=== PATIENT | female | born 1975 | race Caucasian/White ===

== ENCOUNTER → 2021-09-17 09:57 | Outpatient (CLI) | payer OTHER, SELFPAY ==
[2021-09-17 18:37] LABS: Hematocrit 38.2 % (36-46); Hemoglobin 12.8 g/dL (12.0-16.0); Mean Corpuscular HGB Conc 33.4 % (30-36); Mean Corpuscular Hemoglobin 28.9 PG (26-34); Mean Corpuscular Volume 86.3 fL (80-100); Platelet Count 222 X10^3/uL (150-400); Red Blood Cell Count 4.42 X10^6/uL (4.0-5.2); Red Cell Distribution Width 13.4 % (11.6-14.8); White Blood Cell Count 4.4 X10^3/uL (4.5-11.0)
[2021-09-17 18:49] LABS: Alanine Aminotransferase 22 IU/L (<35); Albumin 4.4 g/dL (3.5-5.0); Albumin Globulin Ratio 1.4 (1.0-2.8); Alkaline Phosphatase 65 U/L (38-126); Aspartate Aminotransferase 30 IU/L (14-36); Bilirubin Total 0.7 mg/dL (0.2-1.3); Blood Urea Nitrogen 13 mg/dL (7-17); Calcium 9.6 mg/dL (8.4-10.2); Carbon Dioxide 28 mmol/L (22-32); Chloride 104 mmol/L (98-107); Estimated Glomerular Filt Rate > 60.0 mL/min (>60); Globulin 3.1 g/dL (1.7-4.1); Glucose 99 mg/dL (70-100); HEMOLYSIS < 15 (0-50); Potassium 4.2 mmol/L (3.4-5.1); Sodium 139 mmol/L (137-145); Total Protein 7.5 g/dL (6.3-8.2)
[2021-09-17 18:55] LABS: High Sensitivity CRP - Cardiac 6.2 mg/L (1.0-3.0)
[2021-09-17 19:18] LABS: Thyroid Stimulating Hormone 0.603 uIU/mL (0.47-4.68)
[2021-09-19 08:08] LABS: Cholesterol HDL Ratio 3.7 ratio (0.0-4.4); Cholesterol,Total 268 mg/dL (100-199); HDL Cholesterol 72 mg/dL (>39); LDL Cholesterol Cal 178 mg/dL (0-99); Triglycerides 103 mg/dL (0-149); VLDL Cholesterol Cal 18 mg/dL (5-40)
== END ==
PROVIDERS: PCP Family Medicine; Visit Provider Nurse Practitioner Obstetrics & Gynecology
DX: E78.5 Hyperlipidemia, unspecified (principal)
CPT/HCPCS: 80053; 80061; 84443; 85027; 86140

== ENCOUNTER → 2023-01-25 10:15 | Outpatient (CLI) | payer OTHER, SELFPAY ==
[2023-01-25 19:39] LABS: Add Manual Diff / Slide Review NO; Basophils Absolute Auto 100 /uL (0-100); Basophils Percent Auto 1.3 % (0-2); Eosinophils Absolute Auto 100 /uL (0-450); Eosinophils Percent Auto 1.8 % (2-4); Hematocrit 37.1 % (36-46); Hemoglobin 12.3 g/dL (12.0-16.0); Lymphocytes Absolute Auto 1800 /uL (1100-4500); Lymphocytes Percent Auto 34.4 % (25-40); Mean Corpuscular HGB Conc 33.3 % (30-36); Mean Corpuscular Volume 84.1 fL (80-100); Monocytes Absolute Auto 300 /uL (0-900); Monocytes Percent Auto 6.1 % (3-14); Neutrophils Absolute Auto 3000 /uL (1500-7000); Neutrophils Percent Auto 56.4 % (50-75); Platelet Count 248 X10^3/uL (150-400); Red Blood Cell Count 4.41 X10^6/uL (4.0-5.2); Red Cell Distribution Width 14.6 % (11.6-14.8); White Blood Cell Count 5.4 X10^3/uL (4.5-11.0)
[2023-01-25 19:47] LABS: BUN Creatinine Ratio 14.8 (6-22); Blood Urea Nitrogen 12 mg/dL (7-17); Carbon Dioxide 25 mmol/L (22-32); Chloride 102 mmol/L (98-107); Cholesterol 253 mg/dL (140-199); Estimated Glomerular Filt Rate > 60 mL/min (>60); Glucose 100 mg/dL (70-100); HDL Cholesterol 69 mg/dL (40-60); HEMOLYSIS < 15 (0-50); LDL Cholesterol Calculated 154 mg/dL (<100); Potassium 4.7 mmol/L (3.4-5.1); Sodium 136 mmol/L (137-145); Triglycerides 152 mg/dL (35-150)
[2023-01-25 20:17] LABS: TSH w/ Reflex to FT4 0.39 uIU/mL (0.47-4.68)
[2023-01-25 20:50] LABS: Free T4, Direct Thyroxine 0.94 ng/dL (0.78-2.19)
[2023-01-26 22:10] LABS: Labcorp Hemoglobin (Hb) A1c 6.1 % (4.8-5.6)
== END ==
PROVIDERS: PCP Physician Assistant Medical; Visit Provider Family Medicine
DX: E78.2 Mixed hyperlipidemia (principal); F32.9 Major depressive disorder, single episode, unspecified; R63.5 Abnormal weight gain; Z13.1 Encounter for screening for diabetes mellitus
CPT/HCPCS: 80048; 80061; 83036; 84439; 84443; 85025

== ENCOUNTER → 2023-06-01 09:14 | Outpatient (CLI) | payer OTHER, SELFPAY ==
[2023-06-01 19:18] LABS: BUN Creatinine Ratio 6.5 (6-22); Blood Urea Nitrogen 5 mg/dL (7-17); Calcium 9.4 mg/dL (8.4-10.2); Carbon Dioxide 23 mmol/L (22-32); Chloride 103 mmol/L (98-107); Cholesterol 229 mg/dL (140-199); Estimated Glomerular Filt Rate > 60 mL/min (>60); Glucose 98 mg/dL (70-100); HDL Cholesterol 69 mg/dL (40-60); HEMOLYSIS < 15 (0-50); LDL Cholesterol Calculated 130 mg/dL (<100); Sodium 137 mmol/L (137-145); Triglycerides 149 mg/dL (35-150)
[2023-06-01 19:34] LABS: TSH w/ Reflex to FT4 0.57 uIU/mL (0.47-4.68)
[2023-06-01 19:42] LABS: Creatinine Urine Random 137.2 mg/dL
[2023-06-01 19:49] LABS: Microalbumin Urine Random < 0.6 mg/dL (0-1.6)
[2023-06-01 19:55] LABS: Hemoglobin A1C% w Est Avg Glu 5.8 % (4.0-6.0)
== END ==
PROVIDERS: PCP Physician Assistant Medical; Visit Provider Family Medicine
DX: Z51.81 Encounter for therapeutic drug level monitoring (principal); E78.2 Mixed hyperlipidemia; Z80.8 Family history of malignant neoplasm of other organs or systems; R73.03 Prediabetes; R63.5 Abnormal weight gain
CPT/HCPCS: 80048; 80061; 82043; 82570; 83036; 84443

== ENCOUNTER → 2023-09-14 08:28 | Outpatient (CLI) | payer OTHER, SELFPAY ==
[2023-09-14 19:14] LABS: BUN Creatinine Ratio 10.7 (6-22); Blood Urea Nitrogen 8 mg/dL (7-17); Calcium 9.6 mg/dL (8.4-10.2); Carbon Dioxide 25 mmol/L (22-32); Chloride 108 mmol/L (98-107); Cholesterol 148 mg/dL (140-199); Estimated Glomerular Filt Rate > 60 mL/min (>60); Glucose 94 mg/dL (70-100); HDL Cholesterol 75 mg/dL (40-60); HEMOLYSIS < 15 (0-50); LDL Cholesterol Calculated 51 mg/dL (<100); Potassium 4.2 mmol/L (3.4-5.1); Sodium 140 mmol/L (137-145); Triglycerides 109 mg/dL (35-150)
[2023-09-14 19:58] LABS: Vitamin B12 857 pg/mL (239-931)
[2023-09-14 20:11] LABS: Hemoglobin A1C% w Est Avg Glu 5.6 % (4.0-6.0)
== END ==
PROVIDERS: PCP Family Medicine; Visit Provider Family Medicine
DX: R73.03 Prediabetes (principal); E78.2 Mixed hyperlipidemia; Z78.9 Other specified health status; Z68.31 Body mass index [BMI] 31.0-31.9, adult
CPT/HCPCS: 80048; 80061; 82607; 83036

== ENCOUNTER → 2023-11-13 09:26 | Outpatient (CLI) | payer OTHER, SELFPAY ==
[2023-11-13 15:34] LABS: Hematocrit 35.7 % (36-46); Hemoglobin 11.8 g/dL (12.0-16.0); Mean Corpuscular HGB Conc 32.9 % (30-36); Mean Corpuscular Hemoglobin 28.5 PG (26-34); Mean Corpuscular Volume 86.5 fL (80-100); Platelet Count 194 X10^3/uL (150-400); Red Blood Cell Count 4.13 X10^6/uL (4.0-5.2); Red Cell Distribution Width 13.3 % (11.6-14.8); White Blood Cell Count 5.6 X10^3/uL (4.5-11.0)
[2023-11-13 15:46] LABS: HEMOLYSIS < 15 (0-50); Iron 69 ug/dL (37-170)
[2023-11-13 15:58] LABS: Percent Iron Saturation 18 % (15-50); Total Iron Binding Capacity 394 ug/dL (265-497); Transferrin 313 mg/dL (206-381)
[2023-11-13 19:47] LABS: Neutrophils Absolute Manual 3528 /uL (3000-5900); RBC Morphology Normal Morphology; Total Cells Counted 100
== END ==
PROVIDERS: PCP Family Medicine; Visit Provider Family Medicine
DX: Z78.9 Other specified health status (principal)
CPT/HCPCS: 83540; 83550; 85025

== ENCOUNTER → 2025-03-05 11:39 | Outpatient (CLI) | payer OTHER, SELFPAY ==
--- NOTE | 2025-03-05 11:40 | DI.MG.S_ITS ---
MM screening mammo BI: 03/05/2025. BI-RADS: 1 CLINICAL: 50-year old female for bilateral screening mammogram. Tyrer-Cuzick lifetime risk of 17.4%. No personal or first-degree family history of breast cancer. PRIOR EXAMS Outside priors 08/18/2023, 12/31/2020, 01/29/2019, and 08/31/2017. MAMMOGRAPHY TECHNIQUE: 2D and 3D (tomosynthesis) digital mammographic views obtained, with additional images as needed for full coverage. Current study was also evaluated with a Computer Aided Detection (CAD) system. DENSITY D. The breasts are extremely dense, which lowers the sensitivity of mammography. MAMMOGRAPHY FINDINGS Bilateral: No suspicious mass, asymmetry, microcalcification, or other abnormality seen. IMPRESSION: * No evidence of malignancy. RECOMMENDATIONS Bilateral * Annual screening mammography. OVERALL ASSESSMENT CATEGORY BI-RADS-1: Negative. [employer] recommends annual screening mammography beginning at age 40 for women with average risk of breast cancer. ELECTRONICALLY SIGNED: Reid Meredith M.D. on 03/06/2025 at 09:29:36 PM PT Interpreting Station ID: [id number]
== END ==
LOC: MAMMO 11:40
PROVIDERS: PCP Family Medicine; Referring Provider Family Medicine; Visit Provider Family Medicine
DX: Z12.31 Encounter for screening mammogram for malignant neoplasm of breast (principal); R92.343 Mammographic extreme density, bilateral breasts
CPT/HCPCS: 77063; 77067

== ENCOUNTER → 2025-05-09 08:09 | Outpatient (CLI) | payer OTHER, SELFPAY ==
[2025-05-09 18:17] LABS: Add Manual Diff / Slide Review NO; Hematocrit 40.1 % (36-46); Hemoglobin 13.4 g/dL (12.0-16.0); Lymphocytes Absolute Auto 1600 /uL (1100-4500); Mean Corpuscular HGB Conc 33.4 % (30-36); Mean Corpuscular Hemoglobin 30.1 PG (26-34); Mean Corpuscular Volume 90.2 fL (80-100); Platelet Count 189 X10^3/uL (150-400)
[2025-05-09 18:26] LABS: Blood Urea Nitrogen 12 mg/dL (7-17); Calcium 9.4 mg/dL (8.4-10.2); Carbon Dioxide 22 mmol/L (22-32); Chloride 106 mmol/L (98-107); Cholesterol 164 mg/dL (140-199); Estimated Glomerular Filt Rate > 60 mL/min (>60); Glucose 110 mg/dL (70-99); HDL Cholesterol 97 mg/dL (40-60); HEMOLYSIS 32 (0-50); Potassium 4.4 mmol/L (3.4-5.1); Sodium 139 mmol/L (137-145); Triglycerides 70 mg/dL (35-150)
[2025-05-09 19:14] LABS: Vitamin B12 782 pg/mL (239-931)
== END ==
PROVIDERS: PCP Family Medicine; Visit Provider Family Medicine
DX: D64.9 Anemia, unspecified (principal); K21.9 Gastro-esophageal reflux disease without esophagitis; E78.2 Mixed hyperlipidemia; Z78.9 Other specified health status
CPT/HCPCS: 80048; 80061; 82607; 85025